=== PATIENT | female | born 1955 | race Caucasian/White ===

== ENCOUNTER 2022-03-16 16:05 | Emergency (ER) | payer MEDICARE, OTHER ==
[~2022-03-16] VITALS: Ht 170.2 cm; Wt 134.0 kg
[2022-03-16] MEDS ORDERED: NAPROXEN500 MG PO (18:26)
[2022-03-16] MEDS ORDERED: METFORMIN HCL500 MG PO (18:26)
[2022-03-16] MEDS ORDERED: HYDROCODON-ACE1 EA10 PO (22:55)
[2022-03-16] MEDS ORDERED: LEVOFLOXACIN750 MG PO (22:55)
--- NOTE | 2022-03-17 19:07 | EKG ---
[facility] [address] [place] [address] Signed Normal sinus rhythm Nonspecific T wave abnormality Abnormal ECG No previous ECGs available Confirmed by TANVIR CHI MD ([id number]) on 03/17/2022 7:06:47 PM Electronically Signed By: TANVIR CHI MD 03/17/22 1907 PATIENT NAME: ROBB DA SILVA Electrocardiogram DATE OF : 53 PHYSICIAN: TANVIR CHI MD REPORT #: [id number] REPORT IS CONFIDENTIAL AND NOT TO BE RELEASED WITHOUT AUTHORIZATION
== END 2022-03-16 23:13 | disposition home or self-care (01) ==
LOC: ED 16:05
DX: J18.9 Pneumonia, unspecified organism (principal); R91.1 Solitary pulmonary nodule
CPT/HCPCS: 36415; 71045; 71260; 80053; 83690; 83735; 84484; 85025; 85379; 93005; 93010; A9270; J1885

== ENCOUNTER 2024-10-19 08:33 | Day surgery (SDC) | payer MEDICARE, OTHER ==
[~2024-10-19] VITALS: Ht 170.2 cm; Wt 129.3 kg
[~2024-10-19 08:33] MED LIST: CIPRO500 MG PO; GABAPENTIN100 MG PO; HYDROCODON-ACE1 EA10 PO; IBLOOD GLUCOSE TEST STRIP 1 EA TEST VI PRN; LACTATED RINGER'S 1,000 ML IV SCH; LEVOFLOXACIN750 MG PO; LEVOTHYROXINE100 MC2 PO; LIDOCAINE HCL 1% 5 ML SDV INJ ONE; LISINOPRIL-HCT1 EACH PO; METFORMIN HCL500 MG PO; METRONIDAZOLE500 MG PO; MIDAZOLAM HCL 5 MG/5 ML VIAL IV PRN; NAPROXEN500 MG PO; OXYBUTYNIN CHLOR5 MG PO; PHENTERMINE HCL15 MG PO; SIMVASTATIN40 MG PO; TOPIRAMATE25 MG PO; VENTOLIN HFA18 GM INH; VITAMIN D21250 MCG PO; fentaNYL citrate 100 MCG/2 ML VIAL IV PRN
[2024-10-19 08:49] VITALS: BP 113/48
[2024-10-19] MEDS ORDERED: MIDAZOLAM HCL 2 MG/2 ML VIAL ONE (09:36)
[2024-10-19] MEDS ORDERED: fentaNYL citrate 100 MCG/2 ML VIAL ONE (09:36)
--- NOTE | 2024-10-19 10:29 | NUR ---
10/19/24 Fatimah9 Cheyanne Ramos 1025-PATIENT ARRIVED TO PACU ON 3L NC RR EVEN. PATIENT REACTIVE TO VERBAL STIMULI OPENS EYES AND DOZES BACK TO SLEEP. IVF INFUSING. ABDOMEN SOFT PASSING GAS
[2024-10-19 11:34] VITALS: BP 118/73
--- NOTE | 2024-10-19 13:15 | OR ---
[facility] [place] [facility] [address], [place] [address] Signed DATE OF OPERATION: 10/19/2024 SURGEON: Zachery Zavala MD PREOPERATIVE DIAGNOSIS: History of episode of significant bleeding, March 2024. POSTOPERATIVE DIAGNOSIS: No evidence of lesion to account for bleeding; inadequate bowel prep of cecum and right colon, however. PROCEDURE: Total colonoscopy to cecum. ANESTHESIA: Intravenous sedation, fentanyl 150 mcg and Versed 5 mg. INDICATION: This 69-year-old white woman has never had colonoscopy in the past. She is a patient of [facility]. She had an episode of significant rectal bleeding while shopping at [employer] causing her great distress where she subsequently presented to the Emergency Room and evaluated thoroughly by Dr. Rivera in March 2024. Lower abdominal pain was noted as well. A CT scan was performed which showed descending colon with minimal pericolonic inflammatory stranding and minimal haustral markings concerning for possible colitis. She has had no significant rectal bleeding since that time. She has no family history of colon cancer. She has never had colonoscopy in the past. She is admitted at this time to undergo colonoscopy, understands the risk of bleeding, infection, and perforation. FINDINGS: The mucosa visualized was quite normal. There was no sign of colitis. There was some formed stool in the cecum and right colon, which precluded through evaluation of that, but the remaining colon was reasonably well evaluated and found to have no abnormality to account for bleeding. DESCRIPTION OF PROCEDURE: The patient was brought to the endoscopy suite and placed in lateral decubitus position, given intravenous sedation to the point of slurred speech and nystagmus. Digital rectal examination was normal. Olympus video colonoscope was passed in the rectum and manipulated throughout the colon, noted some small bits of solid stool, which were Electronically Signed By: ZACHERY ZAVALA MD 10/19/24 1315 PATIENT NAME: ROBB DA SILVA OPERATIVE REPORT DATE OF : 53 REPORT #: [id number] PHYSICIAN: ZACHREY ZAVALA MD PCP: ZARI STRONG MD REPORT IS CONFIDENTIAL AND NOT TO BE RELEASED WITHOUT AUTHORIZATION [facility] [place] [facility] [address], [place] [address] Signed easily navigated and irrigated away. Scope was passed beyond the hepatic flexure into the right colon, but in approaching the right colon was stool that was insurmountable as far as manipulation or irrigation. Scoping around the stool was not particularly effective, but it was clear that this did represent the cecum. The scope was then withdrawn. Examination throughout showed no sign of abnormality to account for bleeding, specifically no polyps, diverticular formation, colitis, or cancer. Scope was removed. The patient was taken to the recovery room in good condition. CONCLUDING DIAGNOSES: No lesion to account for bleeding. Substandard prep as regards the cecum and right colon; we will offer patient repeat colonoscopy with additional attention to her prep, specifically withholding of fiber food or simply recommend repeat colonoscopy in 5 years. Certainly, if she were to have recurrent bleeding, re-evaluation would be recommended. She will otherwise return to the ongoing care of [facility]. MD GALILEO Hardy/LAW /[id number] cc: Digna Stearns PA-C Copies: DIGNA STEARNS PAC ~ Electronically Signed By: ZACHERY ZAVALA MD 10/19/24 1315 PATIENT NAME: ROBB DA SILVA OPERATIVE REPORT DATE OF : 53 REPORT #: [id number] PHYSICIAN: ZACHERY ZAVALA MD PCP: ZARI STRONG MD REPORT IS CONFIDENTIAL AND NOT TO BE RELEASED WITHOUT AUTHORIZATION
== END 2024-10-19 11:45 | disposition home or self-care (01) ==
LOC: DS 08:33
PROVIDERS: ATTEND Surgery
PROC: 0DJD8ZZ Inspection of Lower Intestinal Tract, Via Natural or Artificial Opening Endoscopic (ICD-10-PCS; principal; 2024-10-19 09:30)
DX: K62.5 Hemorrhage of anus and rectum (principal); E03.9 Hypothyroidism, unspecified; I10 Essential (primary) hypertension; Z79.899 Other long term (current) drug therapy
CPT/HCPCS: 99153; G0500; J2250; J3010; J7121